=== PATIENT | male | born 1955 | race Asian ===

== ENCOUNTER 2017-10-08 09:32 | Emergency (ER) | payer BC ==
--- NOTE | 2017-10-08 09:36 | PDOC ---
History of Present Illness - General Chief Complaint: Pain Stated Complaint: ABD PAIN Time Seen by Provider: 10/08/17 09:35 - History of Present Illness Initial Comments: 62 year old male with PMH of gout (allopurinol) presenting with one day of abdominal symptoms and now abdominal pain. States he had abdominal discomfort for one day and some depressed appetite with an episode of NBNB vomiting last night. He had a slight abdominal pain at 2:00 AM in his left flank that worsened when he woke up in the morning. The pain is somewhat positional and worse with deep inspiration. The pain began to radiate over to his right quadrant and remained in an achy band liek distribution. denies fevers, chills, diarrhea, chest pain, SOB, or other sick symptoms. 10/08/17 09:51 Past History - Past Medical History Allergies/Adverse Reactions: Allergies Allergy/AdvReac Type Severity Reaction Status Date / Time No Known Allergies Allergy Verified 10/08/17 09:47 Home Medications: Ambulatory Orders Allopurinol [Zyloprim -] 100 mg PO DAILY 10/08/17 Review of Systems - Review of Systems Constitutional: No: Chills, Diaphoresis, Fever HEENTM: No: Blurred Vision, Tearing, Recent change in vision Respiratory: No: Cough, Shortness of Breath, Wheezing Cardiac (ROS): No: Chest Pain, Edema, Irregular Heart Rate ABD/GI: Yes: Nausea, Poor Appetite, Vomiting. No: Constipated, Diarrhea : No: Burning, Dysuria, Discharge Musculoskeletal: No: Back Pain, Joint Pain Integumentary: No: Bruising, Change in Color, Erythema, Flushing Neurological: No: Headache, Numbness, Paresthesia Psychiatric: No: Anxiety, Depression *Physical Exam - Physical Exam General Appearance: Yes: Nourished, Appropriately Dressed, Apparent Distress, Mild Distress HEENT: positive: EOMI, VISH, Normal ENT Inspection, Normal Voice Neck: positive: Normal Thyroid, Supple. negative: Tender, Trachea midline, Rigid Respiratory/Chest: positive: Lungs Clear, Normal Breath Sounds. negative: Chest Tender, Respiratory Distress, Accessory Muscle Use Cardiovascular: positive: Regular Rhythm, Regular Rate Gastrointestinal/Abdominal: positive: Tender (diffusely tender accross epigastrium, LUQ, and RUQ. Most significantly in epigastrium.), Flat, Soft, Increased Bowel Sounds. negative: Normal Bowel Sounds Lymphatic: negative: Adenopathy, Tenderness Musculoskeletal: positive: Normal Inspection. negative: CVA Tenderness Extremity: positive: Normal Capillary Refill, Normal Inspection, Normal Range of Motion. negative: Tender Integumentary: positive: Normal Color, Dry, Warm Neurologic: positive: Fully Oriented, Alert, Normal Mood/Affect, Normal Response , Motor Strength 10/12 ED Treatment Course - LABORATORY CBC & Chemistry Diagram: 10/08/17 09:59 10/08/17 09:59 Medical Decision Making - Medical Decision Making 62 year old with upper abdominal pain that eventually localized to the RUQ. Labs WNL but pending Ct abdomen/ pelvis with IV contrast to rule out stones and diverticulitis. 10/08/17 12:35 CT, US, and labs negative/ WNL. Unclear etiology for pain but patient feels much better. Likely MSK vs. gastritis. Will DC with ibuprofen use instructions and PCP follow up. 10/08/17 16:05 10/08/17 16:07 *DC/Admit/Observation/Transfer Diagnosis at time of Disposition: Gastritis Qualifiers: Gastritis type: unspecified gastritis Chronicity: acute Gastritis bleeding: without bleeding Qualified Code(s): K29.00 - Acute gastritis without bleeding - Discharge Dispostion Disposition: HOME Condition at time of disposition: Improved Admit: No - Referrals Referrals: Evaristo Ortiz MD [Primary Care Provider] - - Patient Instructions Printed Discharge Instructions: DI for Abdominal Pain-Adult Additional Instructions: You do not have any abnormalities on your CT scan or ultrasound of your abdomen. Please see Evaristo Dunaway within the next three days. Please return to the ED if you have new or worsening symptoms. - Post Discharge Activity
--- NOTE | 2017-10-08 09:37 | PDOC ---
Attending Attestation - Resident Resident Name: Bhavani Martinez - HPI HPI: 10/08/17 12:41 Pt presents to the Ed complaining of two days of pain in a bandlike distribution across his upper abdomen. Denies fever or urinary complaints. Does complain of one episode of vomiting yesterday. Pain is constant, and feels as though its moving from the left to the right side of his abdomen. - Physicial Exam PE: 10/08/17 12:54 Agree with resident's exam, although his tenderness is mostly in the RUQ for me. Abodmen is soft and non distended. Patient has no guarding or rebound. - Medical Decision Making 10/08/17 12:54 Pt presents to the ED complaining of two days of abdominal pain. Tender in the RUQ on my exam. Differential includes bilary disease, pancretitis, diverticulitis, unlikely mesenteric ischemia. Will check labs and CT abdomen pelvis give pain control and reassess.
[2017-10-08] MEDS ORDERED: MAG HYDROX/AL HYDROX/SIMETH 30 ML UNIT-DOSE CUP PO ONE (09:48)
[2017-10-08] MEDS ORDERED: FAMOTIDINE IV 20 MG/12 ML VIAL IVPUSH SCH (10:00)
[2017-10-08 10:08] VITALS: PULSE 82; TEMP 97.3; BMI 25.1
[2017-10-08 10:29] LABS: BASO % 0.7 % (0-2.0); EOS % 0.2 % (0-4.5); HEMATOCRIT 39.4 % (35.4-49); HEMOGLOBIN 13.2 GM/dL (11.7-16.9); LYMPH % 9.7 % (8-40); MCH 28.3 pg (25.7-33.7); MCHC 33.6 g/dl (32.0-35.9); MEAN CELL VOLUME 84.3 fl (80-96); MEAN PLT VOLUME 8.1 fl (7.5-11.1); MONO % 10.1 % (3.8-10.2); NEUT % 79.3 % (42.8-82.8); PLATELET COUNT 248 K/MM3 (134-434); RBC 4.67 M/mm3 (4.00-5.60); RDW 13.6 % (11.9-15.9); WHITE BLOOD COUNT 8.9 K/mm3 (4.0-10.0)
[2017-10-08] MEDS ORDERED: MAG HYDROX/AL HYDROX/SIMETH 30 ML UNIT-DOSE CUP ONE (10:40)
[2017-10-08] MEDS ORDERED: FAMOTIDINE 20 MG/50 ML IVPB 20 MG/50 ML MG IVPB ONE (10:40)
[2017-10-08 10:50] LABS: URINE APPEARANCE SLCLOUDY; URINE BILIRUBIN NEGATIVE (<2.0 mg/dL); URINE BLOOD 2+ (NEGATIVE); URINE COLOR YELLOW; URINE GLUCOSE (UA) NEGATIVE (NEGATIVE); URINE KETONE NEGATIVE (NEGATIVE); URINE LEUK ESTERASE NEGATIVE (NEGATIVE); URINE NITRITE NEGATIVE (NEGATIVE); URINE UROBILINOGEN NEGATIVE mg/dL (0.2-1.0)
[2017-10-08 10:51] LABS: URINE PROTEIN 1+ (NEGATIVE)
[2017-10-08 10:53] LABS: URINE HYALINE CAST 4 /lpf; URINE MUCUS RARE
[2017-10-08 11:06] LABS: ALBUMIN 3.9 g/dl (3.4-5.0); AMYLASE 90 U/L (25-115); ANION GAP 10 (8-16); BILIRUBIN,DIRECT < 0.2 mg/dL (0.0-0.2); BILIRUBIN,TOTAL 0.3 mg/dL (0.2-1.0); BLOOD UREA NITROGEN 17 mg/dL (7-18); CHLORIDE 100 mmol/L (98-107); CO2 26 mmol/L (21-32); CREATININE 1.1 mg/dL (0.7-1.3); GLUCOSE,RANDOM 86 mg/dL (74-106); LIPASE 172 U/L (73-393); POTASSIUM 3.9 mmol/L (3.5-5.1); SGOT/AST 12 U/L (15-37); SGPT/ALT 16 U/L (12-78); SODIUM 136 mmol/L (136-145)
[2017-10-08 11:10] LABS: ALK PHOS 129 U/L (45-117)
[2017-10-08] MEDS ORDERED: morphine CARPU-JECT 4 MG/1 ML DISP.SYRIN IVPUSH ONE (12:01)
[2017-10-08] MEDS ORDERED: morphine SULFATE 4 MG/ML VIAL ONE (12:20)
--- NOTE | 2017-10-08 13:46 | EKG ---
Test Reason : Blood Pressure : / mmHG Vent. Rate : 074 BPM Atrial Rate : 074 BPM P-R Int : 138 ms QRS Dur : 088 ms QT Int : 366 ms P-R-T Axes : 080 068 063 degrees QTc Int : 406 ms NORMAL SINUS RHYTHM NORMAL ECG WHEN COMPARED WITH ECG OF 04-DEC-2009 02:41, NO SIGNIFICANT CHANGE WAS FOUND Confirmed by Jude Pineda ([id number]) on 10/08/2017 1:46:18 PM Referred By: Confirmed By:Jude Pineda
[2017-10-08 16:19] VITALS: BP 143/70
== END 2017-10-08 16:19 | disposition home or self-care (01) ==
LOC: JER 09:32
PROC: 3E033GC Introduction of Other Therapeutic Substance into Peripheral Vein, Percutaneous Approach (ICD-10-PCS; principal; 2017-10-08)
PROC: 3E033NZ Introduction of Analgesics, Hypnotics, Sedatives into Peripheral Vein, Percutaneous Approach (ICD-10-PCS; 2017-10-08)
DX: K29.00 Acute gastritis without bleeding (principal)
CPT/HCPCS: 36415; 71046-TC-FY; 74177-TC; 76700-TC; 80053; 81003; 81015; 82150; 82248; 82550; 82553; 83690; 84484; 85025; 93005; 93010; 99284-25

== ENCOUNTER 2018-08-06 09:12 | Emergency (ER) | payer BC ==
[2018-08-06 09:22] VITALS: BMI 25.1
--- NOTE | 2018-08-06 09:42 | PDOC ---
History of Present Illness - History of Present Illness Initial Comments: 08/06/18 10:25 The patient is a 63 year old male, with a significant past medical history of Gout, osteoarthritis, Asthma, 50 year tobacco smoking history, who presents to the emergency department with right wrist pain for about 4 days. He states the symptoms improved yesterday morning, however, reports developing subjective fever by the evening. The patient also reports having a dry cough for about a month. He states his wrist feels like his gout. The patient denies chest pain, shortness of breath, headache and dizziness. The patient denies chills, nausea, vomit, diarrhea and constipation. The patient denies dysuria, frequency, urgency and hematuria. Allergies: NKDA Past surgical history: denies toxic habits Social history: 5 year tobacco smoking, 5-6 cigarettes a day <Hilda Diaz - Last Filed: 08/06/18 12:20> - General History Source: Patient Exam Limitations: No Limitations <Kasey Portillo - Last Filed: 08/06/18 13:36> - General Chief Complaint: SIRS, Suspected/Possible Stated Complaint: FEVER/VOMITING/ WEAKNESS Time Seen by Provider: 08/06/18 09:30 Past History <Hilda Diaz - Last Filed: 08/06/18 12:20> - Past Medical History COPD: No DVT: No Dementia: No - Immunization History Immunization Up to Date: Yes - Suicide/Smoking/Psychosocial Hx Smoking History: Never smoked Number of Cigarettes Smoked Daily: 20 Hx Alcohol Use: No Drug/Substance Use Hx: No Substance Use Type: None <Kasey Portillo - Last Filed: 08/06/18 13:36> - Past Medical History Allergies/Adverse Reactions: Allergies Allergy/AdvReac Type Severity Reaction Status Date / Time No Known Allergies Allergy Verified 08/06/18 09:22 Home Medications: Ambulatory Orders Albuterol 2.5/Ipratropium 0.5 [Duoneb -] 1 neb IH QID PRN #30 vial.neb. Azithromycin [Zithromax 250mg Tablets -] 250 mg PO UTDICT #6 tab 08/06/18 Colchicine 0.6 mg PO DAILY #30 capsule 08/06/18 Nebulizer and Compressor [[place] Choice Nebulizer] 1 each MC ASDIR PRN #1 each 08/06/18 Varenicline Tartrate [Chantix] 1 mg PO DAILY 08/06/18 predniSONE [Deltasone -] 60 mg PO DAILY #12 tablet 08/06/18 Review of Systems - Review of Systems Able to Perform ROS?: Yes Comments:: 08/06/18 10:26 CONSTITUTIONAL: Absent: fever, no chills, no fatigue EYES: Absent: visual changes ENT: Absent: ear pain, no sore throat CARDIOVASCULAR: Absent: chest pain, no palpitations RESPIRATORY: (+) cough, Absent: no SOB GASTROINTESTINAL: Absent: abdominal pain, no nausea, no vomiting, no constipation, no diarrhea GENITOURINARY: Absent: dysuria, no frequency, no hematuria MUSCULOSKELETAL: (+) right wrist pain. Absent: back pain, no myalgia SKIN: Absent: rash NEURO: Absent: headache <Hilda Diaz - Last Filed: 08/06/18 12:20> *Physical Exam - Vital Signs Last Vital Signs Temp Pulse Resp BP Pulse Ox 102.0 F H 102 H 18 110/61 97 08/06/18 10:11 08/06/18 09:18 08/06/18 09:18 08/06/18 09:18 08/06/18 09:52 - Physical Exam Comments: 08/06/18 10:28 GENERAL: The patient is in no acute distress. HEAD: Normal with no signs of trauma. EYES: PERRLA, EOMI, sclera anicteric, conjunctiva clear. ENT: Ears normal, nares patent, oropharynx clear without exudates. Moist mucous membranes. NECK: Normal range of motion, supple without lymphadenopathy, JVD, or masses. LUNGS: (+) inspiratory and expiratory wheezing. Breath sounds equal, clear to auscultation bilaterally. No crackles. HEART:Regular rate and rhythm, normal S1 and S2 without murmur, rub or gallop. ABDOMEN: Soft, nontender, normoactive bowel sounds. No guarding, no rebound. No masses palpable. EXTREMITIES: Normal range of motion, no edema. No clubbing or cyanosis. No erythema, or tenderness. NEUROLOGICAL: Cranial nerves II through XII grossly intact. Normal gait, Normal speech. No focal neurological deficits. MUSCULOSKELETAL: Back non-tender to palpation, no CVA tenderness SKIN: Warm, Dry, normal turgor, no rashes or lesions noted. <Hilda Diaz - Last Filed: 08/06/18 12:20> - Vital Signs Last Vital Signs Temp Pulse Resp BP Pulse Ox 99.8 F H 102 H 18 110/61 97 08/06/18 09:18 08/06/18 09:18 08/06/18 09:18 08/06/18 09:18 08/06/18 09:18 <Kasey Portillo - Last Filed: 08/06/18 13:36> Moderate Sedation - Procedure Monitoring Vital Signs: Procedure Monitoring Vital Signs Temperature 102.0 F H 08/06/18 10:11 Pulse Rate 102 H 08/06/18 09:18 Respiratory Rate 18 08/06/18 09:18 Blood Pressure 110/61 08/06/18 09:18 O2 Sat by Pulse Oximetry (%) 97 08/06/18 09:52 <Hilda Diaz - Last Filed: 08/06/18 12:20> - Procedure Monitoring Vital Signs: Procedure Monitoring Vital Signs Temperature 99.8 F H 08/06/18 09:18 Pulse Rate 102 H 08/06/18 09:18 Respiratory Rate 18 08/06/18 09:18 Blood Pressure 110/61 08/06/18 09:18 O2 Sat by Pulse Oximetry (%) 97 08/06/18 09:18 <Kasey Portillo - Last Filed: 08/06/18 13:36> ED Treatment Course - LABORATORY CBC & Chemistry Diagram: 08/06/18 10:05 08/06/18 10:05 - Medications Given in the ED: ED Medications Discontinued Medications Generic Name Dose Route Start Last Admin Trade Name Elyssa PRN Reason Stop Dose Admin Acetaminophen 975 mg 08/06/18 09:55 08/06/18 10:21 Tylenol - PO 08/06/18 09:56 Not Given ONCE ONE Acetaminophen 1,000 mg 08/06/18 10:12 08/06/18 10:21 Ofirmev Injection - IVPB 08/06/18 10:13 1,000 mg ONCE ONE Administration Albuterol/Ipratropium 1 amp 08/06/18 09:55 08/06/18 10:21 Duoneb - NEB 08/06/18 09:56 1 amp ONCE ONE Administration <Hilda Diaz - Last Filed: 08/06/18 12:20> - LABORATORY CBC & Chemistry Diagram: 08/06/18 10:05 08/06/18 10:05 <Kasey Portillo - Last Filed: 08/06/18 13:36> Medical Decision Making - Medical Decision Making 08/06/18 10:11 REctal Temp - 102 EKG: Twelve-lead EKG was performed and reviewed by me. There is normal sinus rhythm with a normal rate of 84 bpm. The axis is normal. The intervals are normal. There are no ST or T wave abnormalities. Impression: Normal twelve-lead EKG 08/06/18 10:31 63 yo M h/o ? gout, Asthma (active tobacco use), ? arthritis He presents to the ER with a complaint of wrist pain x 5 days He also reports fevers beginning yesterday (+) cough, no sputum No chest pain No abdominal pain (+) nausea, no vomiting, constipation No recent travel No ill contacts On exam: Right wrist swollen, pain with movement RRR, no murmur Expiratory wheezing No abdominal tenderness to palpation No lower extremity edema No knee swelling or erythema Will do: Labs EKG CXR, wrist x ray UA Influenza 08/06/18 11:26 Laboratory Tests 08/06/18 08/06/18 08/06/18 10:00 10:05 10:05 WBC 8.0 Hgb 13.5 Hct 39.1 Plt Count 214 Sodium 135 L Potassium 4.1 Chloride 103 Carbon Dioxide 25 BUN 26 H Creatinine 1.3 Random Glucose 102 Uric Acid Troponin I < 0.02 Influenza A (Rapid) Negative Influenza B (Rapid) Negative 08/06/18 10:05 WBC Hgb Hct Plt Count Sodium Potassium Chloride Carbon Dioxide BUN Creatinine Random Glucose Uric Acid 5.3 Troponin I Influenza A (Rapid) Influenza B (Rapid) CXR - lungs clear, no infiltrates 08/06/18 11:26 08/06/18 11:[address] Ortiz Pt has had a h/o gout Would give colchicine 1mg x 3 Would discharge with follow up tomorrow 08/06/18 12:[address] Ortiz to review possibly admitting this patient given he had wrist pain and today has a fever Dr Ortiz requests pt be discharged Wrist re examined able to range the wrist with no pain 08/06/18 12:47 08/06/18 13:16 Laboratory Tests 08/06/18 10:22 Urine Blood 2+ H Urine Nitrite Negative Ur Leukocyte Esterase Negative Urine WBC (Auto) 1 Urine RBC (Auto) 11 <Kasey Portillo - Last Filed: 08/06/18 13:36> *DC/Admit/Observation/Transfer - Attestations Scribe Attestion: 08/06/18 10:29 Documentation prepared by Hilda Diaz, acting as medical coding instructor for Kasey Portillo MD <Hilda Diaz - Last Filed: 08/06/18 12:20> - Discharge Dispostion Decision to Admit order: No <BandarKasey - Last Filed: 08/06/18 13:36> Diagnosis at time of Disposition: COPD exacerbation, Cough, Bronchitis Gout Qualifiers: Gout site: wrist Gout etiology: unspecified cause Chronicity: acute Laterality : right Qualified Code(s): M10.9 - Gout, unspecified Upper respiratory infection Qualifiers: URI type: unspecified URI Qualified Code(s): J06.9 - Acute upper respiratory infection, unspecified - Discharge Dispostion Disposition: HOME Condition at time of disposition: Stable - Prescriptions Prescriptions: Albuterol 2.5/Ipratropium 0.5 [Duoneb -] 1 neb IH QID PRN #30 vial.neb. PRN Reason: Wheezing Azithromycin [Zithromax 250mg Tablets -] 250 mg PO UTDICT #6 tab Colchicine 0.6 mg PO DAILY #30 capsule Nebulizer and Compressor [[place] Choice Nebulizer] 1 each MC ASDIR PRN #1 each PRN Reason: Wheezing predniSONE [Deltasone -] 60 mg PO DAILY #12 tablet - Referrals Referrals: Evaristo Ortiz MD [Primary Care Provider] - - Patient Instructions Printed Discharge Instructions: DI for Fever (Symptom) -- Adult, DI for Gout, DI for Viral Syndrome Additional Instructions: Mr Austin Thank you for coming in to the ER today Please review your labs Please be sure to follow up with Dr. Ortiz TOMORROW Please take all medications as prescribed Please take Return to the emergency department immediately with ANY new, persistent or worsening symptoms. If you have pain in ANY joint which is so severe that you can not move your joint, please return to the ER for re evaluation Continue any medications as previously prescribed by your physician. Please make sure your doctor reviews the results of your emergency evaluation. Thank you for coming to the Emergency Department today for your care. It was a pleasure to see you today. Please note that your evaluation is INCOMPLETE until you follow-up with your doctor.
[2018-08-06] MEDS ORDERED: SODIUM CHLORIDE IV ONE (09:54)
[2018-08-06] MEDS ORDERED: ACETAMINOPHEN 325 MG TABLET (FP) PO ONE (09:55)
[2018-08-06] MEDS ORDERED: ALBUTEROL SO4 2.5/IPRATROPIUM 0.5 INH SOL 3 ML VIAL.NEB. NEB ONE ×2 (09:55→10:12)
[2018-08-06] MEDS ORDERED: ACETAMINOPHEN 1000 MG/100 ML VIAL (NON FORMULARY) IVPB ONE (10:12)
[2018-08-06] MEDS ORDERED: ACETAMINOPHEN INJECTION 100 ML IVPB ONE (10:12)
[2018-08-06 10:24] LABS: BASO % 0.7 % (0-2.0); EOS % 0.2 % (0-4.5); HEMATOCRIT 39.1 % (35.4-49); HEMOGLOBIN 13.5 GM/dL (11.7-16.9); LYMPH % 7.1 % (8-40); MCH 29.3 pg (25.7-33.7); MCHC 34.6 g/dl (32.0-35.9); MEAN CELL VOLUME 84.6 fl (80-96); MEAN PLT VOLUME 8.5 fl (7.5-11.1); PLATELET COUNT 214 K/MM3 (134-434); RBC 4.63 M/mm3 (4.00-5.60)
[2018-08-06 10:33] LABS: VENOUS PH 7.44 (7.32-7.42)
[2018-08-06 10:34] LABS: VENOUS PC02 37.9 mmHg (38-52); VENOUS PO2 53.8 mmHg (28-48)
[2018-08-06 10:37] LABS: INR 1.14 (0.83-1.09); PROTHROMBIN TIME (PATIENT) 13.5 SEC (9.7-13.0)
[2018-08-06 10:40] LABS: ACTIVATED PTT 35.7 SECONDS (25.2-36.5)
[2018-08-06 10:59] LABS: ALBUMIN 3.2 g/dl (3.4-5.0); ALK PHOS 97 U/L (45-117); ANION GAP 7 MMOL/L (8-16); BILIRUBIN,TOTAL 0.3 mg/dL (0.2-1); BLOOD UREA NITROGEN 26 mg/dL (7-18); CALCIUM 8.2 mg/dL (8.5-10.1); CHLORIDE 103 mmol/L (98-107); CO2 25 mmol/L (21-32); CREATININE 1.3 mg/dL (0.55-1.3); GLUCOSE,RANDOM 102 mg/dL (74-106); POTASSIUM 4.1 mmol/L (3.5-5.1); SGOT/AST 12 U/L (15-37); SGPT/ALT 16 U/L (13-61); SODIUM 135 mmol/L (136-145); TOT PROT 7.1 g/dl (6.4-8.2)
[2018-08-06 11:55] VITALS: TEMP 100
[2018-08-06 12:41] LABS: URINE APPEARANCE SLCLOUDY; URINE BILIRUBIN NEGATIVE (<2.0 mg/dL); URINE COLOR YELLOW; URINE GLUCOSE (UA) NEGATIVE (NEGATIVE); URINE KETONE NEGATIVE (NEGATIVE); URINE LEUK ESTERASE NEGATIVE (NEGATIVE); URINE NITRITE NEGATIVE (NEGATIVE); URINE PROTEIN 2+ (NEGATIVE); URINE UROBILINOGEN NEGATIVE mg/dL (0.2-1.0)
[2018-08-06 12:59] LABS: URINE MUCUS MODERATE
--- NOTE | 2018-08-06 13:34 | EKG ---
Test Reason : Blood Pressure : / mmHG Vent. Rate : 084 BPM Atrial Rate : 084 BPM P-R Int : 136 ms QRS Dur : 086 ms QT Int : 334 ms P-R-T Axes : 072 070 061 degrees QTc Int : 394 ms NORMAL SINUS RHYTHM NORMAL ECG WHEN COMPARED WITH ECG OF 08-OCT-2017 10:08, NO SIGNIFICANT CHANGE WAS FOUND Confirmed by BRYAN PHAM MD ([id number]) on 08/06/2018 1:34:03 PM Referred By: Confirmed By:BRYAN PHAM MD
[2018-08-06] MEDS ORDERED: COLCHICINE 0.6 MG TABLET (FP) PO ONE (13:35)
[2018-08-06] MEDS ORDERED: COLCHICINE 0.6 MG TABLET (FP) ONE (13:40)
[2018-08-06 14:04] VITALS: BP 105/72; PULSE 79
== END 2018-08-06 14:03 | disposition home or self-care (01) ==
LOC: JER 09:12
PROC: 3E0F7GC Introduction of Other Therapeutic Substance into Respiratory Tract, Via Natural or Artificial Opening (ICD-10-PCS; principal; 2018-08-06)
PROC: 3E0337Z Introduction of Electrolytic and Water Balance Substance into Peripheral Vein, Percutaneous Approach (ICD-10-PCS; 2018-08-06)
PROC: 3E0337Z Introduction of Electrolytic and Water Balance Substance into Peripheral Vein, Percutaneous Approach (ICD-10-PCS; 2018-08-06)
PROC: 3E033NZ Introduction of Analgesics, Hypnotics, Sedatives into Peripheral Vein, Percutaneous Approach (ICD-10-PCS; 2018-08-06)
DX: J44.1 Chronic obstructive pulmonary disease with (acute) exacerbation (principal); J06.9 Acute upper respiratory infection, unspecified; M10.9 Gout, unspecified
CPT/HCPCS: 36415; 71045-TC-FY; 73110-TC-RT-FY; 80053; 81003; 81015; 82803; 83605; 84484; 84550; 85025; 85610; 85651; 85730; 86140; 87040; 87086; 87804; 93005; 93010; 99284-25; J0131; J7030

== ENCOUNTER 2020-05-26 14:08 | Observation (INO) | payer BC ==
[2020-05-26 15:55] LABS: INR 0.93 (0.83-1.09); PROTHROMBIN TIME (PATIENT) 11.5 SEC (9.7-13.0)
[2020-05-26 15:57] LABS: ACTIVATED PTT 34.5 SECONDS (25.2-36.5)
[2020-05-26 16:02] LABS: BASO % 1.3 % (0-2.0); EOS % 0.7 % (0-4.5); HEMATOCRIT 43.2 % (35.4-49); HEMOGLOBIN 14.2 GM/dL (11.7-16.9); MEAN CELL VOLUME 84.8 fl (80-96); MEAN PLT VOLUME 8.5 fl (7.5-11.1); MONO % 6.5 % (3.8-10.2); NEUT % 77.5 % (42.8-82.8); PLATELET COUNT 260 K/MM3 (134-434); RBC 5.09 M/mm3 (4.00-5.60); RDW 13.6 % (11.9-15.9); WHITE BLOOD COUNT 11.1 K/mm3 (4.0-10.0)
[2020-05-26 16:05] LABS: CHLORIDE 104 mmol/L (98-107); POTASSIUM 4.2 mmol/L (3.5-5.1); SODIUM 140 mmol/L (136-145)
[2020-05-26 16:08] LABS: ALBUMIN 3.7 g/dl (3.4-5.0); ANION GAP 8 MMOL/L (8-16); BLOOD UREA NITROGEN 13.7 mg/dL (7-18); CO2 28 mmol/L (21-32); GLUCOSE,RANDOM 79 mg/dL (74-106)
[2020-05-26 16:11] LABS: CREATININE 0.9 mg/dL (0.55-1.3); SGOT/AST 15 U/L (15-37); SGPT/ALT 21 U/L (13-61)
[2020-05-26 16:13] LABS: BILIRUBIN,TOTAL 0.5 mg/dL (0.2-1); TOT PROT 7.2 g/dl (6.4-8.2)
[2020-05-26 16:14] LABS: ALK PHOS 104 U/L (45-117)
[2020-05-26] MEDS ORDERED: ASPIRIN 81 MG CHEWABLE TABLETS PO ONE (17:53)
[2020-05-26] MEDS ORDERED: ASPIRIN 81 MG CHEWABLE TABLETS ONE (18:22)
[2020-05-26] MEDS ORDERED: ATORVASTATIN CA 20 MG TABLET (FP) ONE (21:36)
[2020-05-26] MEDS ORDERED: ATORVASTATIN CA 20 MG TABLET (FP) PO SCH (22:00)
[2020-05-27 02:18] VITALS: BMI 27.6
[2020-05-27 07:54] LABS: CHOLESTEROL 137 mg/dL (50-200); TRIGLYCERIDES 61 mg/dL (0-150)
[2020-05-27 07:55] LABS: LDL CHOLESTEROL (ONLY SJRH) 86 mg/dL (5-100)
[2020-05-27 07:57] LABS: HDL CHOLESTEROL 51 mg/dL (40-60)
[2020-05-27] MEDS ORDERED: ASPIRIN 325 MG TABLET PO SCH (10:00)
[2020-05-27 13:22] VITALS: BP 122/79; PULSE 56; TEMP 98.7
== END 2020-05-27 16:15 | disposition home or self-care (01) ==
LOC: JER 14:08 → JERBED 18:07 → J4W 05-27 01:12
PROVIDERS: ADMIT Internal Medicine; ATTEND Internal Medicine
DX: G45.9 Transient cerebral ischemic attack, unspecified (principal); R55 Syncope and collapse; J45.909 Unspecified asthma, uncomplicated; M10.9 Gout, unspecified; F17.210 Nicotine dependence, cigarettes, uncomplicated; J44.9 Chronic obstructive pulmonary disease, unspecified; I25.10 Atherosclerotic heart disease of native coronary artery without angina pectoris
CPT/HCPCS: 36415; 70450-TC; 70486-TC; 70551-TC; 71045-TC-FY; 72125-TC; 80048; 80053; 80061; 82550; 82553; 82607; 82962; 83036; 83090; 83721; 84484; 85025; 85610; 85651; 85730; 93005; 93010; 93225; 93226; 93306-TC; 93880-TC; 97116-GP; 97161-GP; 99285-25; C9803; G0378; U0003